=== PATIENT | male | born 1970 | race Caucasian/White ===

== ENCOUNTER 2024-09-19 06:26 | Day surgery (SDC) | payer OTHER, SELFPAY ==
[2024-09-09 07:21] VITALS: BMI 29.0
[2024-09-09 09:01] LABS: Hematocrit 44.9 % (39.0-52.0); Hemoglobin 15.7 g/dL (13.0-18.0); Mean Corpuscular Hgb 31.1 pg (27.0-31.0); Mean Corpuscular Volume 88.9 fL (80.0-94.0); Mean Platelet Volume 10.3 fL (7.4-10.4); Platelet Count 259 10^3/uL (130-400); Red Blood Cell Count 5.05 10^6/uL (4.70-6.10); Red Cell Dist. Width 12.8 % (11.5-14.5)
[2024-09-09 09:39] LABS: Blood Urea Nitrogen 13 mg/dl (9-20); Calcium 9.1 mg/dl (8.4-10.2); Carbon Dioxide 28 mmol/L (22-30); Chloride 106 mmol/L (98-107); Estimated Creatinine Clearance 98 ml/min; Glucose 101 mg/dl (70-99); Potassium 4.3 mmol/L (3.5-5.1); Sodium 140 mmol/L (135-145); eGFR > 60.00
[2024-09-19] VITALS (13 sets, daily range): BP systolic 118–151; BP diastolic 82–106; BMI 29.0
--- NOTE | 2024-09-19 07:12 | HP.FOC2 ---
Focused History & Physical
Chief Complaint
HPI:
Chief Complaint: Umbilical hernia
HPI / Indication for Planned Procedure: Patient is a 54-year-old male recently seen in outpatient surgical evaluation with a reported 1 year history of visible swelling on the inferior aspect of his umbilical stalk. It has slightly increased in
size since initially noticing. Some associated discomfort and awareness of his hernia being present. Physical examination confirmed the presence of a readily apparent right inguinal hernia. He presents today for scheduled operative correction.
Relevant Past Medical History: Other (Hypertension, asthma, chronic sinusitis, sleep apnea)
Relevant Social History: Negative
Relevant Family History: Negative
Relevant Past Surgical History: Positive for (Right shoulder surgery, sinus surgery, removal of an osteoma)
Review of Systems
Review of Pertinent Systems: All Systems Negative
Medication
See Medication form for detailed medications: Yes
Medication List (including Herbals & OTC):
albuterol 90 mcg-budesonide 80 mcg/actuation HFA aerosol inhaler (Airsupra) 2 inh inhalation PRN PRN SOB, Wheezes 09/13/24
diltiazem HCl 120 mg capsule,extended release 24 hr 120 mg PO DAILY 09/13/24
metoprolol succinate 50 mg tablet,extended release 24 hr 50 mg PO DAILY 09/13/24
multivitamin 1 tab PO DAILY 09/13/24
omeprazole 40 mg capsule,delayed release 40 mg PO DAILY 09/13/24
Medications Reviewed: Yes
Allergies and Reactions
Patient has Allergies: Yes
Noted Allergies and Reactions:
Allergy/AdvReac Type Severity Reaction Status Date / Time
Iodinated Contrast Media Allergy Anaphylaxis Verified 09/13/24 08:18
Pertinent Physical Exam
All Other Systems: Negative
Head/Neck: Normal
Lungs: Normal
Heart: Normal
Abdomen: Other (Soft, partially reducible umbilical hernia. Fascial defect likely approaching 2 cm)
Extremities: Normal
Neurological: Normal
Diagnosis / Assessment
54-year-old male presenting for scheduled operative correction symptomatic umbilical hernia
Plan / Procedure
Robotic assisted laparoscopic repair umbilical hernia with mesh
Anesthesia/Sedation to be done by Anesthesia Provider: Yes
--- NOTE | 2024-09-19 07:14 | W.SUR.PREOP ---
Pre-Operative Surgical Note
-
I have examined this patient prior to the performance of the scheduled procedure.
The patient's condition is unchanged from the time of the current History and
Physical and the patient is able to undergo the scheduled procedure.
[2024-09-19] MEDS: TYLENOL 1000 MG PO (09:30)
[2024-09-19] MEDS: NORMOSOL-R/PLASMALYTE-A 1000 IV (09:42)
--- NOTE | 2024-09-19 12:53 | W.IMMPOSTOP ---
Surgical Immed Post Op Note
-
Primary Surgeon: Arnold Perez
Assisting Surgeon: Anel Garcia PA-c
Pre-op Diagnosis: Umbilical hernia
Post-op Diagnosis: Umbilical hernia, 2 cm
Procedure Performed: Robotic assisted laparoscopic MADDY repair umbilical hernia with mesh; Bard soft 12 cm x 10 cm
Anesthesia Type: GETA +0.25% Marcaine
Specimen / Cultures: None
Estimated Blood Loss: 6 mL
Complications: None immediate
Operative Findings: Reducible umbilical hernia 2 cm fascial defect. Fascia closed with running continuous 0 PDS STRATAFIX. Underlay preperitoneal mesh repair, Bard soft mesh 12 cm x 10 cm secured with 2-0 Vicryl stitch x 4.
The assistance of Anel Garcia PA-C was required due to the complexity of the procedure. During the procedure Anel Garcia PA-C assisted with port placement, robotic instrumentation and suture material exchanges, and closure of the surgical incision
sites. I was present for the entirety of the operative procedure.
--- NOTE | 2024-09-19 13:12 | OR.RPT ---
Operative Report
Operative Report
Date of operative procedure: 09/19/2024
Primary Surgeon: Arnold Perez MD
Chip Drier: Anel Garcia PA-C
Pre-op Diagnosis: Umbilical hernia
Post-op Diagnosis: Umbilical hernia, 2 cm
Procedure Performed: Robotic assisted laparoscopic MADDY repair umbilical hernia with mesh; Bard soft 12 cm x 10 cm
Anesthesia: GETA +0.25% Marcaine
Specimen / Cultures: None/none
Estimated Blood Loss: 6 mL
Complications: None immediate
Indications for Operative Procedure: The patient is a 54-year-old male recently seen in outpatient surgical evaluation with a reported 1 year history of visible swelling on the inferior aspect of his umbilical stalk. It has slightly increased in
size since initially noticing. Some associated discomfort and awareness of his hernia being present. Physical examination confirmed the presence of a readily apparent umbilical hernia.
I reviewed with the patient treatment options. He wished to pursue operative correction. We discussed various operative approaches to repair and elected to proceed with a robotic assisted laparoscopic umbilical herniorrhaphy with mesh. The
anticipated operative procedure was fully reviewed in detail with the patient preoperatively obtaining written informed consent. See office visit consultation for full details regarding discussions.
Brief Summary of Operative Findings: Reducible umbilical hernia, fascial defect 2 cm. Hernia defect closed with running continuous 0 PDS STRATAFIX suture. Transabdominal preperitoneal repair with flap started on left lateral abdominal wall.
Underlay bard soft mesh, 12 cm vertically by 10 cm wide secured with interrupted 2-0 Vicryl stitch x 4. Peritoneal flap closed with 2-0 Monocryl STRATAFIX spiral. No additional incidental findings on cursory inspection of the abdomen.
Operation in Detail: The patient was identified in the preoperative holding area. I confirmed the umbilical surgical site/location with the patient preoperatively. He was interviewed by the anesthesia and nursing staff then brought back to the
operating room. The patient was placed on the operating table in supine position. The bilateral upper extremities were carefully padded and tucked at the side utilizing the arm guard positioning system. Pneumatic compression boots were on the
bilateral lower extremities. Following induction of general endotracheal anesthesia the patient was administered Ancef 2 g IV for prophylactic antibiotic coverage. The patient's anterior abdominal wall was now widely and sterilely prepped with
ChloraPrep and then draped in the usual manner. The surgical time out was completed and the procedure was confirmed.
I initially proceeded with Veress needle insufflation at the left subcostal midclavicular line location. Once insufflated to 12 mmHg pressure then an 8 mm trocar was placed along the left lateral abdominal wall mcc between the left costal
margin and the left ASIS and a palms breath out from the anticipated left lateral boarder of the mesh placement. The robotic scope was now inserted. There was no evidence of iatrogenic injury from access. The Veress needle was withdrawn. A left
subcostal lateral 8 mm trocar and a left lower quadrant 8 mm trocar just superior/medial to the ASIS were now placed under direct visualization. The patient was then transition into slight Trendelenburg and right side down to aid in exposure of the
anterior abdominal wall. The robot was then docked.
At the surgeon console inspection confirmed the presence of a reducible umbilical hernia containing preperitoneal fat and the peritoneal lining of the hernia sac. There were no additional incidental intra-abdominal findings.
I initially began with the creation of a peritoneal flap along the left lateral abdominal wall. The flap was begun by incising the peritoneum along the left lateral aspect of the central abdominal wall fat pad cranially about 5cm superior to the
fascial defect. The peritoneal incision was now carried down further laterally into the left lower quadrant in an arc like manner with preservation of the posterior sheath. The preperitoneal plane was now established along the length of the flap
and developed towards the midline where the central abdominal wall fat pad was taken down with the peritoneum superiorly and inferiorly to the fascial defect. The hernia sac and contents were now completely reduced with care to preserve the dermis
of the umbilical stalk and its subcutaneous blood supply. The peritoneal flap along the entire length was now mobilized well onto the right lateral side of the abdominal wall to allow for mesh placement with good circumferential coverage.
The umbilical fascial defect was now measured to be 2 cm in maximal diameter. The fascial edges were confirmed to be cleared. No additional hernias in the area were noted. Defect was then closed horizontally with a running continuous 0 PDS
STRATAFIX suture. The suture was then run back upon itself in a reverse direction for a double layer closure and to lock the barbed suture in place. A Bard soft mesh measuring 12 cm vertically by 10 cm in width was then introduced through the 8mm
trochar. The mesh was positioned within the peritoneal flap in an underlay fashion and centered over the fascial defect. The mesh was then secured centrally to the linea alba at 2 separate locations with interrupted 2-0 Vicryl suture. The mesh
was also secured at the right and left lateral borders with additional single interrupted 2-0 Vicryl stitch to the posterior sheath on either respective side. Hemostasis was now assured. The left lateral margin of the peritoneal flap was closed
with a running continuous 2-0 Monocryl STRATAFIX suture run in a running fashion. The peritoneal covering of the mesh was confirmed to appear completely intact. The omentum also laid centrally covering the abdominal contents.
At this point the robot was undocked. All sponge, instrument and needle counts were confirmed to be correct x 2. The CO2 insufflation was now fully evacuated out of the abdominal cavity. The trocar sites were removed as well as the flexible
suction catheter. Skin was closed with 4-0 Monocryl. Sterile surgical glue dressings were applied. A negative pressure Tegaderm gauze dressing was placed at the umbilicus to recreate the umbilical stalk and minimize risk of postoperative seroma
formation in this location. The patient tolerated the procedure well and was transferred to the recovery unit for routine postoperative monitoring.
The assistance of Anel Garcia PA-C was required due to the complexity of surgery. During the procedure Anel Garcia PA-C assisted with port placement, robotic instrument and suture material exchanges as well as closure of the surgical sites. I
was present for the entirety of the operative procedure.
[2024-09-19] MEDS: DILAUDID 0.5 MG IV (13:15)
== END 2024-09-19 15:04 | disposition home or self-care (01) ==
LOC: SDS 06:26
PROVIDERS: ATTENDING PHYSICIAN Surgery; FAMILY PHYSICIAN Internal Medicine
DX: K42.9 Umbilical hernia without obstruction or gangrene (principal)
CPT/HCPCS: 49591; 36415; 80048; 85027; 93005; C1781